=== PATIENT | female | born 1960 | race Caucasian/White ===

== ENCOUNTER 2019-09-19 14:13 | Emergency (ER) | payer OTHER ==
[~2019-09-19] VITALS: Ht 172.7 cm; Wt 63.0 kg
[2019-09-19] MEDS ORDERED: NEOMYCIN/POLYMYX/BACITR OINT 0.9 GM PKT TOP ONE (15:30)
[2019-09-19] MEDS ORDERED: HYDROCODONE/APAP 10MG-325MG TAB PO NR (15:30)
--- NOTE | 2019-09-19 16:48 | Diagnostic Imaging Report ---
Exams: Head and cervical spine CTs without IV contrast History: Fall, pain Comparison studies: None Technique: Axial images were obtained from the brain and cervical spine. Coronal and sagittal images reconstructed from the axial data. Dose modulation, iterative reconstruction, and/or weight based adjustment of the mA/kV was utilized to reduce the radiation dose to as low as reasonably achievable. Intravenous contrast: None Findings: Head CT: Scalp/skull: Left frontal-supraorbital soft tissue hematoma without underlying fracture. No retained hyperdense foreign body. Brain sulci: Appropriate for age. Ventricles: Normal in size and configuration. No hydrocephalus. Extra-axial spaces: No masses. No fluid collections. Parenchyma: No mass, acute hemorrhage or acute or chronic cortical insults. Sellar/suprasellar region: No abnormalities. Craniocervical junction: Patent foramen magnum. No Chiari one malformation. Incidental findings: Bilateral ethmoids and partially imaged right maxillary sinus are partially opacified. Cervical spine CT: Airway: Patent. Fractures: None. Soft tissues: No gross abnormalities. Atlantoaxial articulation: Intact. Alignment: Normal lordosis. No scoliosis. Minimal degenerative anterolisthesis of C7 on T1. Cervicomedullary junction: No abnormalities. Patent foramen magnum. Vertebrae: There are multiple prominent air-filled subchondral cyst with vacuum phenomenon in the C4, C5, and C6 vertebral bodies. No infection or neoplasm. Degenerative changes: Multilevel disc degeneration, worse/moderate at C5-C6 and C6-C7. No significant canal stenosis. Multilevel facet arthrosis with fused facets on the right at C3-C4. Disc osteophyte complexes from C3 to C7 indent the thecal sac and result in mild to moderate canal stenosis at C6-C7 (evaluation of the canal at C6-C7 is limited by attenuation artifact). Multilevel uncovertebral facet arthrosis result in multilevel foraminal stenosis which is mild the right at C2-C3, moderate right at C3-C4, severe bilaterally at C4-C5, severe right and moderate left at C5-C6 and mild bilaterally at C6-C7 and at C7-T1. IMPRESSION: Head CT: 1. Left frontal-supraorbital scalp hematoma without underlying fracture. 2. No acute intracranial abnormality. Cervical spine CT: 1. No acute abnormalities. 2. Multilevel degenerative changes as described. 3. Cannot adequately evaluate for ligament, spinal cord and or vascular abnormalities. A preliminary report was issued by Dr. Deleon shortly upon completion of the exam. A final report was issued by Dr. Zavala at 7:58 PM on 09/19/2019. Signed by: Dr. Kike Zavala M.D. on 09/19/2019 7:58 PM
--- NOTE | 2019-09-19 17:45 | Diagnostic Imaging Report ---
EXAM: CHEST 2 VIEWS DATE: 09/19/2019 3:23 PM INDICATION: Fall COMPARISON: None FINDINGS: The trachea is midline. The lungs are symmetrically expanded without evidence for large focal consolidation, pneumothorax, or significant pleural effusion. The cardiomediastinal silhouette and pulmonary vasculature are within normal limits. No acute osseous abnormality is identified. The surrounding soft tissues are unremarkable. IMPRESSION: No acute cardiopulmonary process identified. Signed by: Dr. Rolf Hernandez MD on 09/19/2019 5:41 PM
[2019-09-19 18:36] VITALS: BP 142/81
--- OUTSIDE RECORDS SUMMARY | 2019-09-22 13:35 | XMS REPORT ---
Author Author [facility] Address Unknown Phone Unavailable Care Team Providers Care Gis Coordinator Name Role Phone BRYON TARIQ Unavailable Unavailable Problems This patient has no known problems. Allergies, Adverse Reactions, Alerts This patient has no known allergies or adverse reactions. Medications This patient has no known medications. Results Test Description Test Time Test Comments Text Results Atomic Results Result Comments CHEST 2 VIEWS 2019-09-19 17:41:00 [id number] [place], [place] [address] Patient Name: CHANTAL HERNANDEZ MR #: [id number] : 1960 Age/Sex: 59/F Req #: [id number] Adm Physician: Ordered by: BRYON TARIQ MD, MD Report #: [id number] Location: ER Room/Bed: Procedure: [id number] DX/CHEST 2 VIEWS Exam Date: Exam Time: REPORT STATUS: Signed EXAM: CHEST 2 VIEWS DATE: 09/19/2019 3:23 PM INDICATION: Fall COMPARISON: None FINDINGS: The trachea is midline. The lungs are symmetrically expanded without evidence for large focal consolidation, pneumothorax, or significant pleural effusion. The cardiomediastinal silhouette and pulmonary vasculature are within normal limits. No acute osseous abnormality is identified. The surrounding soft tissues are unremarkable. IMPRESSION: No acute cardiopulmonary process identified. Signed by: Dr. Rolf Hernandez MD on 09/19/2019 5:41 PM Dictated By: ROLF HERNANDEZ MD 40 Transcribed By: ANTOINETTE on 09/19/191740 COPY TO: BRYON TARIQ CT CERVICAL SPINE WO 2019-09-19 16:37:00 [facility] [address] [address] Patient Name: CHANTAL HERNANDEZ MR #: [id number] : 1960 Age/Sex: 59/F Req #: [id number] Adm Physician: Ordered by: BRYON TARIQ MD, MD Report #: [id number] Location: ER Room/Bed: Procedure: [id number] CT/CT CERVICAL SPINE WO Exam Date: Exam Time: REPORT STATUS: Signed Exams: Head and cervical spine CTs without IV contrast History: Fall, pain Comparison studies: None Technique: Axial images were obtained from the brain and cervical spine. Coronal and sagittal images reconstructed from the axial data. Dose modulation, iterative reconstruction, and/or weight based adjustment of the mA/kV was utilized to reduce the radiation dose to as low as reasonably achievable. Intravenous contrast: None Findings: Head CT: Scalp/skull: Left frontal-supraorbital soft tissue hematoma without underlying fracture. No retained hyperdense foreign body. Brain sulci: Appropriate for age. Ventricles: Normal in size and configuration. No hydrocephalus. Extra-axial spaces: No masses. No fluid collections. Parenchyma: No mass, acute hemorrhage or acute or chronic cortical insults. Sellar/suprasellar region: No abnormalities. Craniocervical junction: Patent foramen magnum. No Chiari one malformation. Incidental findings: Bilateral ethmoids and partially imaged right maxillary sinus are partially opacified. Cervical spine CT: Airway: Patent. Fractures: None. Soft tissues: No gross abnormalities. Atlantoaxial articulation: Intact. Alignment: Normal lordosis. No scoliosis. Minimal degenerative anterolisthesis of C7 on T1. Cervicomedullary junction: No abnormalities. Patent foramen magnum. Vertebrae: There are multiple pro minent air-filled subchondral cyst with vacuum phenomenon in the C4, C5, and C6 vertebral bodies. No infection or neoplasm. Degenerative changes: Multilevel disc degeneration, worse/moderate at C5-C6 and C6-C7. No significant canal stenosis. Multilevel facet arthrosis with fused facets on the right at C3-C4. Disc osteophyte complexes from C3 to C7 indent the thecal sac and result in mild to moderate canal stenosis at C6-C7 (evaluation of the canal at C6-C7 is limited by attenuation artifact). Multilevel uncovertebral facet arthrosis result in multilevel foraminal stenosis which is mild the right at C2-C3, moderate right at C3-C4, severe bilaterally at C4-C5, severe right and moderate left at C5-C6 and mild bilaterally at C6-C7 and at C7-T1. IMPRESSION: Head CT: 1. Left frontal-supraorbital scalp hematoma without underlying fracture. 2. No acute intracranial abnormality. Cervical spine CT: 1. No acute abnormalities. 2. Multilevel degenerative changes as described. 3. Cannot adequately evaluate for ligament, spinal cord and or vascular abnormalities. A preliminary report was issued by Dr. Deleon shortly upon completion of the exam. A final report was issued by Dr. Zavala at 7:58 PM on 09/19/2019. Signed by: Dr. Mae Zavala M.D. on 09/19/2019 7:58 PM Dictated By: MAE ZAVALA MD 57 Transcribed By: ANTOINETTE on 09/19/191957 COPY TO: BRYON TARIQ CT BRAIN WO 2019-09-19 16:37:00 [address] [address] Patient Name: CHANTAL HERNANDEZ MR #: [id number] : 1960 Age/Sex: 59/F Req #: [id number] Adm Physician: Ordered by: BRYON TARIQ MD, MD Report #: [id number] Location: ER Room/Bed: Procedure: [id number] CT/CT BRAIN WO Exam Date: Exam Time: REPORT STATUS: Signed Exams: Head and cervical spine CTs without IV contrast History: Fall, pain Comparison studies: None Technique: Axial images were obtained from the brain and cervical spine. Coronal and sagittal images reconstructed from the axial data. Dose modulation, iterative reconstruction, and/or weight based adjustment of the mA/kV was utilized to reduce the radiation dose to as low as reasonably achievable. Intravenous contrast: None Findings: Head CT: Scalp/skull: Left frontal-supraorbital soft tissue hematoma without underlying fracture. No retained hyperdense foreign body. Brain sulci: Appropriate for age. Ventricles: Normal in size and configuration. No hydrocephalus. Extra-axial spaces: No masses. No fluid collections. Parenchyma: No mass, acute hemorrhage or acute or chronic cortical insults. Sellar/suprasellar region: No abnormalities. Craniocervical junction: Patent foramen magnum. No Chiari one malformation. Incidental findings: Bilateral ethmoids and partially imaged right maxillary sinus are partially opacified. Cervical spine CT: Airway: Patent. Fractures: None. Soft tissues: No gross abnormalities. Atlantoaxial articulation: Intact. Alignment: Normal lordosis. No scoliosis. Minimal degenerative anterolisthesis of C7 on T1. Cervicomedullary junction: No abnormalities. Patent foramen magnum. Vertebrae: There are multiple prominent air-filled subchondral cyst with vacuum phenomenon in the C4, C5, and C6 vertebral bodies. No infection or neoplasm. Degenerative changes: Multilevel disc degeneration, worse/moderate at C5-C6 and C6-C7. No significant canal stenosis. Multilevel facet arthrosis with fused facets on the right at C3-C4. Disc osteophyte complexes from C3 to C7 indent the thecal sac and result in mild to moderate canal stenosis at C6-C7 (evaluation of the canal at C6-C7 is limited by attenuation artifact). Multilevel uncovertebral facet arthrosis result in multilevel foraminal stenosis which is mild the right at C2-C3, moderate right at C3-C4, severe bilaterally at C4-C5, severe right and moderate left at C5-C6 and mild bilaterally at C6-C7 and at C7-T1.
== END 2019-09-19 18:37 | disposition home or self-care (01) ==
LOC: ER 14:13
DX: S00.83XA Contusion of other part of head, initial encounter (principal); S80.212A Abrasion, left knee, initial encounter; W01.0XXA Fall on same level from slipping, tripping and stumbling without subsequent striking against object, initial encounter; Y92.008 Other place in unspecified non-institutional (private) residence as the place of occurrence of the external cause; F41.9 Anxiety disorder, unspecified; F32.9 Major depressive disorder, single episode, unspecified
CPT/HCPCS: 70450; 71046; 72125; 99283